=== PATIENT | female | born 1985 | race Caucasian/White ===

== ENCOUNTER 2018-10-09 08:48 | Emergency (ER) | payer SELFPAY ==
[2018-10-09] MEDS ORDERED: Fluorescein Opthalmic Strip ONE (08:57)
[2018-10-09] MEDS ORDERED: Proparacaine 0.5% Opth 15 ML BOT ONE (09:14)
== END 2018-10-09 09:41 | disposition home or self-care (01) ==
LOC: ERS 08:48
DX: S05.01XA Injury of conjunctiva and corneal abrasion without foreign body, right eye, initial encounter (principal); J45.909 Unspecified asthma, uncomplicated; F17.210 Nicotine dependence, cigarettes, uncomplicated; X58.XXXA Exposure to other specified factors, initial encounter
CPT/HCPCS: 99283